=== PATIENT | female | born 1950 ===

== ENCOUNTER 2024-08-26 01:59 | Day surgery (SDC) | payer MEDICARE, OTHER ==
[~2024-08-26 01:59] MED LIST: ATOR40TA PO; ESTRADIOL1 MG PO; GABA300 PO; INSULANI; OMEP20ER PO; OZEMPIC2 MG/0.75 SC
[2024-08-26] MEDS ORDERED: NS IV SCH (06:00)
[2024-08-26] MEDS ORDERED: INFLIXIMAB ABDA IV SCH (06:00)
[2024-08-26] MEDS ORDERED: Loratadine 10 MG Tab PO SCH (07:05)
[2024-08-26] MEDS ORDERED: Acetaminophen 325 MG TABLET PO SCH (07:05)
[2024-08-26 08:01] VITALS: BP 160/104
--- NOTE | 2024-08-26 08:08 | NUR ---
PT DECLINED PREMEDS
== END 2024-08-26 10:49 | disposition home or self-care (01) ==
LOC: ATC 01:59
DX: M05.79 Rheumatoid arthritis with rheumatoid factor of multiple sites without organ or systems involvement (principal); E11.65 Type 2 diabetes mellitus with hyperglycemia; E11.42 Type 2 diabetes mellitus with diabetic polyneuropathy; I10 Essential (primary) hypertension; Z79.899 Other long term (current) drug therapy
CPT/HCPCS: 96413; 96415; J7050; Q5104

== ENCOUNTER 2024-11-19 01:47 | Day surgery (SDC) | payer MEDICARE, OTHER ==
[2024-11-19] MEDS ORDERED: Infliximab-DYYB 400 MG in NS 250 ML IV SCH (06:00)
[2024-11-19] MEDS ORDERED: Abatacept/Maltose 750 MG in NS 100 ML IV SCH (06:00)
[2024-11-19 10:12] VITALS: BP 135/85
[2024-11-19 11:04] VITALS: BP 117/73
== END 2024-11-19 11:08 | disposition home or self-care (01) ==
LOC: ATC 01:47
DX: M05.79 Rheumatoid arthritis with rheumatoid factor of multiple sites without organ or systems involvement (principal); E11.42 Type 2 diabetes mellitus with diabetic polyneuropathy; Z79.4 Long term (current) use of insulin; Z79.899 Other long term (current) drug therapy
CPT/HCPCS: 96365; J0129-JA

== ENCOUNTER 2024-12-07 09:12 | Day surgery (SDC) | payer MEDICARE, OTHER ==
[~2024-12-07 09:12] MED LIST changes: +Abatacept/Maltose 750 MG in NS 100 ML IV SCH
[2024-12-07 10:11] VITALS: BP 120/84
== END 2024-12-07 11:27 | disposition home or self-care (01) ==
LOC: ATC 09:12
DX: M05.79 Rheumatoid arthritis with rheumatoid factor of multiple sites without organ or systems involvement (principal); D84.821 Immunodeficiency due to drugs; E11.42 Type 2 diabetes mellitus with diabetic polyneuropathy; I10 Essential (primary) hypertension
CPT/HCPCS: 96365; J0129-JA

== ENCOUNTER 2024-12-22 01:50 | Day surgery (SDC) | payer MEDICARE, OTHER ==
[~2024-12-22 01:50] MED LIST changes: -Abatacept/Maltose 750 MG in NS 100 ML IV SCH
[2024-12-22] MEDS ORDERED: Abatacept/Maltose 750 MG in NS 100 ML IV SCH (06:00)
[2024-12-22 10:04] VITALS: BP 141/81
== END 2024-12-22 11:03 | disposition home or self-care (01) ==
LOC: ATC 01:50
DX: M05.79 Rheumatoid arthritis with rheumatoid factor of multiple sites without organ or systems involvement (principal); E11.42 Type 2 diabetes mellitus with diabetic polyneuropathy; Z79.52 Long term (current) use of systemic steroids; E11.65 Type 2 diabetes mellitus with hyperglycemia; Z79.4 Long term (current) use of insulin; Z79.899 Other long term (current) drug therapy
CPT/HCPCS: 96365; J0129-JA

== ENCOUNTER 2025-01-19 04:52 | Day surgery (SDC) | payer MEDICARE, OTHER ==
[2025-01-19] MEDS ORDERED: Abatacept/Maltose 750 MG in NS 100 ML IV SCH (06:00)
[2025-01-19 10:00] VITALS: BP 130/96
[2025-01-19] MEDS ORDERED: PRED5 PO (12:08)
== END 2025-01-19 11:18 | disposition home or self-care (01) ==
LOC: ATC 04:52
DX: M05.79 Rheumatoid arthritis with rheumatoid factor of multiple sites without organ or systems involvement (principal); E11.42 Type 2 diabetes mellitus with diabetic polyneuropathy; I10 Essential (primary) hypertension; Z79.52 Long term (current) use of systemic steroids; Z79.4 Long term (current) use of insulin; Z79.899 Other long term (current) drug therapy
CPT/HCPCS: 96365; J0129-JA

== ENCOUNTER 2025-02-16 02:01 | Day surgery (SDC) | payer MEDICARE, OTHER ==
[~2025-02-16 02:01] MED LIST changes: +Abatacept/Maltose 750 MG in NS 100 ML IV SCH; +PRED5 PO
[2025-02-16 10:37] VITALS: BP 140/82
== END 2025-02-16 11:02 | disposition home or self-care (01) ==
LOC: ATC 02:01
DX: M05.79 Rheumatoid arthritis with rheumatoid factor of multiple sites without organ or systems involvement (principal); E11.42 Type 2 diabetes mellitus with diabetic polyneuropathy; Z79.52 Long term (current) use of systemic steroids
CPT/HCPCS: 96365; J0129-JA

== ENCOUNTER 2025-03-15 00:40 | Day surgery (SDC) | payer MEDICARE, OTHER ==
[~2025-03-15 00:40] MED LIST changes: -Abatacept/Maltose 750 MG in NS 100 ML IV SCH
[2025-03-15] MEDS ORDERED: Abatacept/Maltose 750 MG in NS 100 ML IV SCH (06:00)
[2025-03-15 10:10] VITALS: BP 124/72
== END 2025-03-15 11:12 | disposition home or self-care (01) ==
LOC: ATC 00:40
DX: M05.79 Rheumatoid arthritis with rheumatoid factor of multiple sites without organ or systems involvement (principal); E11.42 Type 2 diabetes mellitus with diabetic polyneuropathy; I10 Essential (primary) hypertension; Z79.4 Long term (current) use of insulin; Z79.52 Long term (current) use of systemic steroids; Z79.85 Long-term (current) use of injectable non-insulin antidiabetic drugs; Z79.899 Other long term (current) drug therapy
CPT/HCPCS: 96365; J0129-JA

== ENCOUNTER → 2025-03-23 | Outpatient (CLI) | payer MEDICARE, OTHER ==
[2025-03-23 12:43] LABS: BASOPHILS ABSOLUTE AUTO 0.04 K/mm3 (0.00-0.23); BASOPHILS PERCENT AUTO 0 % (0-2); EOSINOPHILS ABSOLUTE AUTO 0.03 K/mm3 (0.00-0.68); EOSINOPHILS PERCENT AUTO 0 % (0-6); Hemoglobin 13.7 g/dL (11.5-16.0); IMMATURE GRAN ABSOLUTE AUTO 0.07 K/mm3 (0.00-0.10); IMMATURE GRAN PERCENT AUTO 1 % (0-1); LYMPHOCYTES ABSOLUTE AUTO 2.24 K/mm3 (0.84-5.20); LYMPHOCYTES PERCENT AUTO 19 % (21-46); MONOCYTES ABSOLUTE AUTO 0.71 K/mm3 (0.16-1.47); MONOCYTES PERCENT AUTO 6 % (4-13); Mean Corpuscular HGB 30.4 pg (26.0-34.0); Mean Corpuscular HGB Conc 34.3 g/dL (31.5-36.5); Mean Corpuscular Volume 89 fL (80-100); Mean Platelet Volume 11.6 fL (9.1-12.4); NEUTROPHILS ABSOLUTE AUTO 8.74 K/mm3 (1.96-9.15); NEUTROPHILS PERCENT AUTO 74 % (41-73); Platelet Count 199 K/mm3 (150-400); RDW Coefficient Variation 13.6 % (11.7-14.2); RDW Standard Deviation 44.5 fL (35.1-46.3); White Blood Cell Count 11.83 K/mm3 (4.00-11.30)
[2025-03-23 12:54] LABS: Albumin, Blood 2.8 g/dL (3.4-5.0); Albumin/Globulin Ratio 0.7 (0.8-1.8); Bilirubin, Total 0.7 mg/dL (0.1-1.0); Bun/Creatinine Ratio 12.8 (12.0-20.0); Calcium, Blood 9.3 mg/dL (8.5-10.1); Creatinine, Blood 0.86 mg/dL (0.40-1.00); Globulin, Blood 4.1 g/dL (2.2-4.0); Potassium, Blood 4.9 mmol/L (3.5-5.5); Total Protein, Blood 6.9 g/dL (6.4-8.2)
== END ==
LOC: LAB SHORT 12:38 → LAB 12:38
PROVIDERS: Physician Assistant
DX: L08.9 Local infection of the skin and subcutaneous tissue, unspecified (principal); E13.69 Other specified diabetes mellitus with other specified complication
CPT/HCPCS: 80053; 85025

== ENCOUNTER 2025-05-11 03:06 | Day surgery (SDC) | payer MEDICARE, OTHER ==
[2025-05-11] MEDS ORDERED: Abatacept/Maltose 750 MG in NS 100 ML IV SCH (06:00)
[2025-05-11 10:30] VITALS: BP 129/66
== END 2025-05-11 11:40 | disposition home or self-care (01) ==
LOC: ATC 03:06
DX: M05.79 Rheumatoid arthritis with rheumatoid factor of multiple sites without organ or systems involvement (principal); D84.821 Immunodeficiency due to drugs; E11.42 Type 2 diabetes mellitus with diabetic polyneuropathy; I10 Essential (primary) hypertension; Z79.4 Long term (current) use of insulin; Z79.52 Long term (current) use of systemic steroids; Z79.85 Long-term (current) use of injectable non-insulin antidiabetic drugs; Z79.899 Other long term (current) drug therapy
CPT/HCPCS: 96365; J0129-JA

== ENCOUNTER 2025-06-06 00:10 | Day surgery (SDC) | payer MEDICARE, OTHER ==
[~2025-06-06 00:10] MED LIST changes: +Abatacept/Maltose 750 MG in NS 100 ML IV SCH
[2025-06-06] MEDS ORDERED: MONJARO SC (10:04)
[2025-06-06 10:12] VITALS: BP 125/82
--- NOTE | 2025-06-06 10:13 | NUR ---
2 UNSUCCESSFUL IV ATTEMPTS BY CINDY TO PT'S LEFT FOREARM
== END 2025-06-06 11:16 | disposition home or self-care (01) ==
LOC: ATC 00:10
DX: M05.79 Rheumatoid arthritis with rheumatoid factor of multiple sites without organ or systems involvement (principal); D84.821 Immunodeficiency due to drugs; E11.42 Type 2 diabetes mellitus with diabetic polyneuropathy; E11.65 Type 2 diabetes mellitus with hyperglycemia; I10 Essential (primary) hypertension; Z79.52 Long term (current) use of systemic steroids; Z79.4 Long term (current) use of insulin; Z79.899 Other long term (current) drug therapy
CPT/HCPCS: 96365; J0129-JA

== ENCOUNTER 2025-07-05 02:20 | Day surgery (SDC) | payer MEDICARE, OTHER ==
[~2025-07-05 02:20] MED LIST changes: -Abatacept/Maltose 750 MG in NS 100 ML IV SCH; +MONJARO SC
[2025-07-05] MEDS ORDERED: Abatacept/Maltose 750 MG in NS 100 ML IV SCH (06:00)
[2025-07-05 10:21] VITALS: BP 119/69
== END 2025-07-05 11:30 | disposition home or self-care (01) ==
LOC: ATC 02:20
DX: M05.79 Rheumatoid arthritis with rheumatoid factor of multiple sites without organ or systems involvement (principal)
CPT/HCPCS: 96365; J0129-JA

== ENCOUNTER 2025-08-02 01:11 | Day surgery (SDC) | payer MEDICARE, OTHER ==
[2025-08-02] MEDS ORDERED: Abatacept/Maltose 750 MG in NS 100 ML IV SCH (06:00)
[2025-08-02 10:15] VITALS: BP 144/84
== END 2025-08-02 11:30 | disposition home or self-care (01) ==
LOC: ATC 01:11
DX: M05.79 Rheumatoid arthritis with rheumatoid factor of multiple sites without organ or systems involvement (principal)
CPT/HCPCS: J0129-JA

== ENCOUNTER 2025-08-30 01:07 | Day surgery (SDC) | payer MEDICARE, OTHER ==
[2025-08-30] MEDS ORDERED: Abatacept/Maltose 750 MG in NS 100 ML IV SCH (06:00)
[2025-08-30 10:15] VITALS: BP 144/82
== END 2025-08-30 12:04 | disposition home or self-care (01) ==
LOC: ATC 01:07
DX: M05.79 Rheumatoid arthritis with rheumatoid factor of multiple sites without organ or systems involvement (principal)
CPT/HCPCS: 96365; J0129-JA

== ENCOUNTER 2025-09-27 02:39 | Day surgery (SDC) | payer MEDICARE, OTHER ==
[2025-09-27] MEDS ORDERED: Abatacept/Maltose 750 MG in NS 100 ML IV SCH (06:00)
[2025-09-27 10:24] VITALS: BP 154/76
[2025-09-27] MEDS ORDERED: ABAT250V (10:26)
== END 2025-09-27 11:28 | disposition home or self-care (01) ==
LOC: ATC 02:39
DX: M05.79 Rheumatoid arthritis with rheumatoid factor of multiple sites without organ or systems involvement (principal); D84.821 Immunodeficiency due to drugs; E11.42 Type 2 diabetes mellitus with diabetic polyneuropathy; Z79.4 Long term (current) use of insulin; Z79.51 Long term (current) use of inhaled steroids; Z79.52 Long term (current) use of systemic steroids; Z79.85 Long-term (current) use of injectable non-insulin antidiabetic drugs; Z79.899 Other long term (current) drug therapy; M25.551 Pain in right hip; M25.552 Pain in left hip
CPT/HCPCS: 73522; 96413; J0129-JA